=== PATIENT | male | born 1945 | race Caucasian/White ===

== ENCOUNTER → 2017-02-06 | Outpatient (CLI) | payer OTHER ==
[~2017-02-06] MED LIST: SIMV40TA4 PO
== END | disposition home or self-care (01) ==
LOC: C.PATHSPEC 12:51
PROVIDERS: ATTEND Dermatology
DX: L57.0 Actinic keratosis (principal); Q82.8 Other specified congenital malformations of skin

== ENCOUNTER → 2017-04-04 | Outpatient (CLI) | payer OTHER ==
[2017-04-04 10:51] LABS: ALT/SGPT 20 U/L (12-78); AST/SGOT 16 U/L (15-37); BLOOD UREA NITROGEN 14 mg/dl (7-18); BUN/CREATININE RATIO 15.5 (10-20); CALCIUM 8.9 mg/dl (8.5-10.1); CARBON DIOXIDE 26 mmol/L (21-32); CHLORIDE 110 mmol/L (98-107); CREATININE 0.93 mg/dl (0.60-1.40); GLUCOSE 88 mg/dl (70-99); POTASSIUM 4.2 mmol/L (3.5-5.1); SODIUM 140 mmol/L (136-145)
[2017-04-04 10:56] LABS: CHOLESTEROL 167 mg/dl (0-200); CHOLESTEROL/HDL RATIO 3.8; HDL CHOLESTEROL 44 mg/dl; LDL CHOLESTEROL CALCULATED 104 mg/dl; TRIGLYCERIDES 94 mg/dl (0-150); VERY LOW DENSITY LIPOPROT CALC 19 mg/dl
== END | disposition home or self-care (01) ==
LOC: C.LAB1850 06:49
PROVIDERS: ATTEND Internal Medicine
DX: N40.0 Benign prostatic hyperplasia without lower urinary tract symptoms (principal); E78.5 Hyperlipidemia, unspecified

== ENCOUNTER → 2017-11-09 | Outpatient (CLI) | payer OTHER ==
[2017-11-09 10:37] LABS: ALT/SGPT 18 U/L (12-78); AST/SGOT 15 U/L (15-37); BLOOD UREA NITROGEN 16 mg/dl (7-18); CALCIUM 9.2 mg/dl (8.5-10.1); CARBON DIOXIDE 28 mmol/L (21-32); CREATININE 0.95 mg/dl (0.60-1.40); GLUCOSE 88 mg/dl (70-99); POTASSIUM 4.3 mmol/L (3.5-5.1); SODIUM 136 mmol/L (136-145)
[2017-11-09 10:43] LABS: CHOLESTEROL 129 mg/dl (0-200); LDL CHOLESTEROL CALCULATED 71 mg/dl
== END | disposition home or self-care (01) ==
LOC: C.LAB1850 06:54
PROVIDERS: ATTEND Internal Medicine
DX: E78.5 Hyperlipidemia, unspecified (principal); N40.0 Benign prostatic hyperplasia without lower urinary tract symptoms

== ENCOUNTER → 2018-03-01 | Outpatient (CLI) | payer OTHER ==
--- NOTE | 2018-03-01 09:22 | DIAGNOSTIC IMAGING REPORT ---
RIGHT FOOT 3 VIEWS HISTORY: M79.673 Foot pain Tenderness at the base of the toes throughout COMPARISON: None. FINDINGS: There is no fracture or dislocation. Medial soft tissue swelling at the first MTP joint. No radiopaque foreign bodies. Tiny plantar heel spur. No erosive changes identified. The Lisfranc joint is intact. Mild cartilage space narrowing and subchondral sclerosis at the first MTP joint with tiny marginal osteophytes. This is consistent with mild osteoarthritis. IMPRESSION: 1. Mild osteoarthritis at the first MTP joint. 2. Medial soft tissue swelling at the first MTP joint. 3. No bony erosions identified within the right foot. Electronically signed by: Jadiel Chun M.D. 03/01/2018 9:21 AM Dictated Date/Time: 03/01/2018 9:19 AM
== END | disposition home or self-care (01) ==
LOC: C.RAD1850 09:10
PROVIDERS: ATTEND Physician Assistant
DX: M19.071 Primary osteoarthritis, right ankle and foot (principal)

== ENCOUNTER → 2018-03-20 | Outpatient (CLI) | payer OTHER ==
--- NOTE | 2018-03-20 18:47 | DIAGNOSTIC IMAGING REPORT ---
BILATERAL LOWER EXTREMITY ARTERIAL DOPPLER STUDY CLINICAL HISTORY: BILATERAL LEG PAIN/SWELLING COMPARISON STUDY: None. FINDINGS: The right GLENDA measured with the posterior tibial artery was 0.35. The left GLENDA measured with the posterior tibial artery was 0.88 and the dorsalis pedis artery was 0.94. Scattered calcified plaque throughout the bilateral lower extremity arterial systems. Normal velocities seen throughout the right common femoral and superficial femoral arteries. Focal occlusion of the proximal right popliteal artery. There is a small collateral resulting in distal reconstitution of the right popliteal artery. Monophasic low velocity waveforms seen within the right posterior tibial and peroneal arteries. The mid to distal right anterior tibial artery is occluded. The right dorsalis pedis artery is also occluded. Normal velocities and triphasic waveforms seen within the left common femoral and proximal to mid left superficial femoral arteries. Borderline elevated peak systolic velocity within the distal left superficial femoral artery of 190 cm/s. Normal velocity biphasic waveform seen within the left popliteal artery. Normal velocity monophasic waveforms seen within the left peroneal and posterior tibial arteries. Focal occlusion of the distal left anterior tibia artery. However, there is reconstitution with normal velocity monophasic waveforms in the left dorsalis pedis artery. IMPRESSION: 1. Focal occlusions involving the proximal right popliteal artery, mid to distal right anterior tibial artery, right dorsalis pedis artery, and distal left anterior tibial artery as described above. 2. There is borderline stenosis within the distal left superficial femoral artery. 3. Ankle brachial indices as described above. Electronically signed by: Jadiel Chun M.D. 03/20/2018 6:46 PM Dictated Date/Time: 03/20/2018 6:38 PM
== END | disposition home or self-care (01) ==
LOC: C.ULTR 16:07
PROVIDERS: ATTEND Podiatrist Foot & Ankle Surgery
DX: I70.293 Other atherosclerosis of native arteries of extremities, bilateral legs (principal)

== ENCOUNTER → 2018-03-30 | Day surgery (SDC) | payer OTHER ==
--- NOTE | 2018-03-29 14:44 | History and Physical ---
History & Physical Date of Service Mar 29, 2018. History & Physical Dear Dr. Farrar: We had the pleasure seeing your patient, Mr. Hirsch, in [facility] today. As you know, he is a 72-year-old male who has an 8-week history of right foot pain. He reports that the pain is constant. He was seen in an urgent care and initially diagnosed with gout. He did have his uric acid level checked at that time and it returned negative. He was then treated with a course of antibiotics by his primary care physician. He was also seen by you and was sent for a duplex ultrasound of his lower extremity, which revealed an GLENDA of 0.35 on his right and occlusion of his right proximal popliteal mid distal right anterior tibial and right DP, as well as an occlusion of his left AT. His left GLENDA was 0.88. He says that his pain is constant. He is having trouble sleeping. He says when he lies down, the pain is intolerable. Dangling his foot does not help. He has been sleeping at the kitchen table with a pillow on the table. He reports a stinging pain and tingling in his foot. He has been able to continue working, but he needs to take his boot off several times a day to rub his foot. He does also have a small ulceration at the tip of his great toe. He has previously been seen in cardiology and follow there for abdominal aortic aneurysm that was initially 3.4 x 2.8 cm in May 2016. He says he got a repeat ultrasound done in 2016, which showed an improvement of the aneurysm. He is due for another repeat ultrasound in June of this year. REVIEW OF SYSTEMS: A 12-point review of systems is negative other than the above mentioned. PAST MEDICAL HISTORY: Hypercholesterolemia, hypertension. PAST SURGICAL HISTORY: Significant for a hernia repair at the age of 18. HOME MEDICATIONS: Simvastatin, losartan and Combigan. FAMILY HISTORY: Significant for father who with heart disease. He reports no history of stroke in his family. He reports no history of bleeding or clotting disorders. SOCIAL HISTORY: Significant for at least [id number] smoking history. He reports he is currently a pack a day smoker. He reports rare alcohol use. PHYSICAL EXAM: Today in clinic, his vital signs are heart rate of 76. He is saturating 94% on room air. His blood pressure in his right upper extremity is 144/80. His blood pressure in his left upper extremity is 142/88. He is a 72- year-old male who is in no acute distress. His head is normocephalic, atraumatic. His mucous membranes are moist. His extraocular muscles are intact. His sclerae are anicteric. His heart rate is regular rate and rhythm. His lungs are clear to auscultation bilaterally. His abdomen is soft, nontender, nondistended. He has palpable femoral pulses bilaterally. His lower extremities are warm bilaterally. He has palpable DP and PT pulse on his left lower extremity. No palpable pulses felt on his right lower extremity. His right foot shows rubor. He does have an ulceration on the tip of his right great toe. He is alert and oriented x3 with no focal neurologic deficits. In summary, Mr. Hirsch is a 72-year-old male who presents with rest pain in his right foot. He has an GLENDA of 0.35 on his right with occlusion of his right proximal popliteal and mid distal anterior tibial and dorsalis pedis. At this time, we will arrange for him to have an arteriogram on Monday, March 30. Depending on the results of this arteriogram, he may require a bypass in the near future. The risks, benefits and alternatives of this procedure were discussed with him and his and daughter today. They were in understanding and agreed to proceed. He was given a script for percocet for improved pain control. The patient was seen and examined with Dr. Porter who agrees with above assessment and plan. Thank you for referring this patient to our office. I saw and evaluated the patient. Discussed with the resident and agree with the resident's findings and plan as documented in the resident's note. #[id number] Signature Line Electronic Signature on File CC: Adan Farrar DPM [address] [facility] [address] * CC: Mamadou Dickey MD [facility] [address] [facility] [address] * Luma Munoz MD Author Signature Dt/Tm: 03/28/2018 10:18 AM Resident Division of General Surgery Electronically Reviewed/Signed by: Petar Katz Signature Dt/Tm : 03/28/2018 11:15 AM Biochemistry Teacher [facility] [place] [address], [address] [place] [address] JEOVANNY /PSC Result Type: .Outpt Ltr Date of Service: March 28, 2018 00:00 EDT Authorization Status: Final Subject: Outpatient Letter Author or Import Date: MD Tammy, Luma Gutierrez on March 28, 2018 09:18 EDT Verified By: MD Charlotte, Roge Downs on March 28, 2018 11:15 EDT Encounter info: [id number], [facility], Clinic, 03/28/2018 - Contributor system: [id number] Imp: Right popliteal artery occlusion Plan: Patient is admitted for arteriography with possible intervention. I have discussed the risks options and benefits of the procedure with the patient. The patient understands the risks options and benefits and agrees to the procedure.
[~2018-03-30] VITALS: Ht 180.3 cm; Wt 80.0 kg
[~2018-03-30] MED LIST changes: +ALTEPLASE, RECOMBINANT 10 MG in SYRINGE 0 ML IV ONE; +BRIMONIDINE OPR; +CEFAZOLIN 1000MG IV PUSH 7.5 ML IV SCH; +CLOP1TAB54 PO; +CLOPIDOGREL BISULFATE 300 MG TAB PO STA; +FENTANYL CITRATE INJ 50 MCG/1 ML 2 ML VIAL IV ONE; +FENTANYL CITRATE INJ 50 MCG/1 ML 2 ML VIAL ONE; +HEPARIN SOD (PORCINE) 1000 UNIT/ML 10 ML VIAL IV ONE; +HEPARIN SOD (PORCINE) 1000 UNIT/ML 10 ML VIAL ONE; +IODIXANOL (VISIPAQUE) 270 MG/ML 150ML IV ONE; +LIDOCAINE HCL 1% 20 ML VIAL SQ ONE; +MIDAZOLAM HCL 1 MG/ML 2ML VIAL IV ONE; +MIDAZOLAM HCL 1 MG/ML 2ML VIAL ONE; +NITROGLYCERIN/D5W 100 MCG/ML IV PRN; +NITROGLYCERIN/D5W 100MCG/ML 20ML SYR ONE; +NURSING VERBAL MED ORDER ONE; +OXYCODONE/ACETAMINOPHEN 5-325 TAB PO PRN; +SODIUM CHLORIDE 0.9% 1000ML 1,000 ML IV SCH; +TIMOLOL OPR; +losartan PO
[2018-03-30 08:54] VITALS: BP 135/77; PULSE 85; TEMP 36.5; O2SAT 95; Ht 180.3 cm; Wt 80.0 kg
--- NOTE | 2018-03-30 09:04 | History & Physical Bridge Note ---
H&P Re-Evaluation Bridge Note: I have examined the patient, reviewed the History & Physical and in the interval since the performance of the History & Physical I have noted the following changes of clinical significance: No changes noted
--- NOTE | 2018-03-30 10:30 | Pre Sedation Assessment ---
Pre Sedation Assessment General Date of Sedation: Mar 30, 2018. Vital Signs Past 12 Hours Date Time Temp Pulse Resp B/P (MAP) Pulse Ox O2 Delivery O2 Flow Rate FiO2 03/30/18 08:54 36.5 85 20 135/77 (96) 95 Room Air Review Cardiovascular: regular rate, rhythm Lungs: lungs clear Pre-Sedation Airway Assessment Smoking Status: Current Some Day Smoker Hx of Sleep Apnea: No Short Thick Neck: No Thyro-mental Distance: > 3 Finger Breadths Oral Cavity: Dentures Mallampati Classification: Class I ASA Classification: Class III NPO Status Date of Last Intake of Fluids: Mar 29, 2018 Time of Last Intake of Fluids: 2300 Date of Last Intake of Solids: Mar 29, 2018 Time of Last Intake of Solids: 2300 Procedure Planning Contraindications for Sedation: None Current Medications Reviewed: Yes Notes The planned sedation has been discussed with the patient. Informed Consent was obtained. I have identified the patient, determined the appropriateness of sedation and have assessed the patient immediately prior to the procedure. All medicine(s) and interventions are by my order.
--- NOTE | 2018-03-30 13:22 | [facility] Post Operative Brief Note ---
Immediate Operative Summary Operative Date Mar 30, 2018. Pre-Operative Diagnosis Right Popliteal Occlusion Post-Operative Diagnosis Right Popliteal Occlusion Procedure(s) Performed Angiogram With Run Off, Percutaneous Transluminal Angioplasty, Mechanical Arthrectomy, Infusion of thrombolytics, Moderate Sedation From [address] Porter Sensor Specialist Surgeon(s) Luma Nina MD Estimated Blood Loss 10 Findings Consistent with Post-Op Diagnosis Specimens None Drains None Anesthesia Type IV Sedat Cons RN Only Complication(s) none Disposition Accompanied Pt To Recover: no Disposition:
--- NOTE | 2018-03-30 13:26 | Discharge Instructions ---
Discharge Instructions Date of Service Mar 30, 2018. Visit Reason for Visit: Right Popliteal Occlusion W/Rest Pain Discharge Discharge Diagnosis / Problem: Right popliteal artery occlusion Discharge Goals Goal(s): Therapeutic intervention Activity Recommendations Activity Limitations: per Instructions/Follow-up section Anesthesia . Post Anesthesia Instructions: If you have had General Anesthesia or IV Sedation: * Do not drive today. * Resume driving when surgeon permits. * Do not make important decisions or sign legal documents today. * Call surgeon for: 1. Temperature elevations greater than 101 degrees F. 2. Uncontrollable pain. 3. Excessive bleeding. 4. Persistent nausea and vomiting. 5. Medication intolerance (nausea, vomiting or rash). * For nausea and vomiting use only clear liquids such as: tea, soda, bouillon until nausea subsides, then gradually increase diet as tolerated. * If you have any concerns or questions, call your surgeon's office. If physician is unavailable and it is an emergency, call 911 or go to the nearest emergency room. . Instructions / Follow-Up Instructions / Follow-Up Call [phone] to schedule a follow up appointment if one not already scheduled. SPECIAL CARE INSTRUCTIONS: Medications: * Continue to take your medications as directed. If you have been given a prescription for Plavix, please fill it immediately and take as directed. Incision Care: * Your puncture site may have some bruising and minor swelling for about one week. * You will have a small dressing covering your puncture site. You may remove the dressing after 24 hours and shower. You may let the warm soapy water run over it, but be sure to dry the puncture site well and keep it dry. * DO NOT IMMERSE THE INCISION IN A TUB/POOL/etc. UNTIL HEALED. * Puncture sites should be kept covered with a band-aid until it begins to heal. Restrictions: * Depending on whether you leg or arm was punctured to access the arteries, you will be required to lay flat, hold your arm still, or both, for about 4 hours after the procedure to prevent bleeding. * Limit your activity for the first 48 hours. You may walk and go up and down steps. Avoid excessive bending or movement at the puncture site. Possible Complications: * Excessive Swelling - after blood flow is improved you may notice increased swelling in the lower legs. This is a normal response. This usually depends on the amount of blockages in the leg, how long they have been there prior to your procedure and how much blood flow was restored. Elevating your legs will help to improve this. Please notify our office ([phone] ) if the swelling does not go away after lying in bed overnight. * Infection/Drainage/Bleeding - Drainage or bleeding from the puncture site should be minimal. If you have excessive bleeding or drainage, call our office ([phone]) right away. * Pain - You may experience some mild pain or soreness at your puncture site. If your pain does not improve, please contact our office ([phone]). Call your doctor and seek emergent treatment if you develop: * Temperature above 101 degrees * Any fever or chills * Any redness or purulent drainage from the puncture site * Any new dusky/blue colored toes or feet with coolness or sharp or aching pain. SKIN IRRITATION: * You may experience some redness and/or swelling in the area where radiation was administered. If any skin irritation occurs, please contact your family physician. FOLLOW UP VISIT: Keep any scheduled doctor appointments. Diet Recommendations Recommended Home Diet: resume previous diet Procedures Procedures Performed: Angiogram With Run Off, Percutaneous Transluminal Angioplasty, Mechanical Arthrectomy, Infusion of thrombolytics, Moderate Sedation Pending Studies Studies pending at discharge: no Medical Emergencies . Who to Call and When: Medical Emergencies: If at any time you feel your situation is an emergency, please call 911 immediately. . Non-Emergent Contact Non-Emergency issues call your: Surgeon . . "Provider Documentation" section prepared by Roge Porter. .
--- NOTE | 2018-03-30 13:29 | [facility] Operative Report ---
Operative Report Operative Date Mar 30, 2018. Pre-Operative Diagnosis Right Popliteal Occlusion Post-Operative Diagnosis Right Popliteal Occlusion Procedure(s) Performed Angiogram With Run Off, Percutaneous Transluminal Angioplasty, Mechanical Arthrectomy, Infusion of thrombolytics, Moderate Sedation From [address] Porter Business Employment Specialist Surgeon(s) Luma Munoz MD Estimated Blood Loss 10 ml Specimens None Drains None Anesthesia Type IV Sedat Cons RN Only Complication(s) none Disposition no Indications Mr. Hirsch is a 72-year-old male who has an 8-week history of right foot pain. He was seen in an urgent care and initially diagnosed with gout. He did have his uric acid level checked at that time and it returned negative. He was then treated with a course of antibiotics by his primary care physician. He eventually was sent for a duplex ultrasound of his lower extremity, which revealed an GLENDA of 0.35 on his right and occlusion of his right proximal popliteal, mid distal anterior tibial and DP, as well as an occlusion of his left AT. His left GLENDA was 0.88. He says that his pain is constant. He does also have a small ulceration at the tip of his great toe. The risks, benefits and alternatives were discussed with the Mr. Hirsch, his and daughter and he agreed to proceed. Description of Procedure The patient was brought to the angio suite and placed in the supine position. He was given preoperative antibiotics. Local anesthesia was administered. The left common femoral artery was accessed under ultrasound guidance. A 5 Slovenian sheath was placed. An 0.035 angled glidewire was advanced to the aorta. A 5 Slovenian rim catheter was used to access the right common iliac artery. Arteriogram of the right iliac showed no stenosis in the right external iliac, common femoral, superficial femoral or profunda femoris arteries. The glidewire was advanced to the right SFA and the rim catheter was then advanced over the wire. Right lower extremity arteriogram was completed showing occlusion of the popliteal artery with collateralization and the peroneal artery providing flow to the right foot. A stiff 0.035 glidewire was then used and easily crossed the area of popliteal occlusion. The 5 Fr sheath and rim catheter were removed and a Destination 8 Fr 45cm sheath was placed under fluoroscopy. The 035 glidewire was exchanged for an 0.014 glidewire. The Jetstream 7Fr 1.85 was used for embolectomy of the popliteal artery. Angiogram showed improvement in blood flow through the popliteal with continued stenosis. The Jetstream 7 Fr 2.1 was then used for embolectomy of the popliteal artery. We then did percutaneous transluminal angioplasty of the distal popliteal artery with an Ozona 4.0 x 80mm balloon, followed by angioplasty of the mid and proximal popliteal artery with an Ozona 5.0 x 90mm balloon. Arteriogram showed peroneal runoff to the foot. The patient was given 200 mcg nitroglycerin via the sheath to improve blood flow to the foot. Repeat angiogram did not show improvement in the distal runoff. A 0.014 quick cross catheter was then placed and advanced to the popliteal artery. 10mg of tPA were administered via the quick cross catheter. Angiogram was repeated after 5 min and 10 min after tPA administration with improvement of flow. The catheter and sheath were removed and the Starclose device was used to close the puncture site. Hemostasis was held over the left femoral artery. Hemostasis was achieved. The patient tolerated the procedure well and was brought to the PACU in good condition. Dr. Porter was present and scrubbed for the entire procedure. I attest to the content of the Intraoperative Record and any orders documented therein. Any exceptions are noted below.
[2018-03-30 13:45] VITALS: BP 120/77; PULSE 91; TEMP 36.3; O2SAT 93
[2018-03-30 14:15] VITALS: BP 146/66; PULSE 88; TEMP 36.3; O2SAT 94
[2018-03-30 14:45] VITALS: BP 140/69; PULSE 94; TEMP 36.3; O2SAT 95
--- NOTE | 2018-03-30 15:17 | Post Sedation Assessment ---
Post Sedation Assessment General Date of Sedation Mar 30, 2018. Vital Signs: Vital Signs Past 12 Hours Date Time Temp Pulse Resp B/P (MAP) Pulse Ox O2 Delivery O2 Flow Rate FiO2 03/30/18 13:30 93 18 111/61 92 Room Air Oxymask 03/30/18 13:25 88 18 138/72 95 Oxymask 4 03/30/18 13:20 87 18 113/79 96 Oxymask 4 03/30/18 13:15 88 14 126/64 96 Oxymask 4 03/30/18 13:10 88 16 134/89 97 Oxymask 4 03/30/18 13:05 89 16 117/75 96 Oxymask 4 03/30/18 13:00 88 16 111/86 96 Oxymask 4 03/30/18 12:55 88 15 140/85 95 Oxymask 4 03/30/18 12:50 92 13 118/86 92 Oxymask 4 03/30/18 12:45 94 16 165/83 98 Oxymask 4 03/30/18 12:40 94 12 153/87 99 Oxymask 4 03/30/18 12:35 94 12 159/90 99 Oxymask 4 03/30/18 12:30 87 12 115/78 99 Oxymask 4 03/30/18 12:25 87 12 120/77 96 Oxymask 4 03/30/18 12:20 89 16 121/83 97 Oxymask 4 03/30/18 12:15 88 15 158/85 100 Oxymask 4 03/30/18 12:10 87 19 144/80 100 Oxymask 4 03/30/18 12:05 89 19 144/78 100 Oxymask 4 03/30/18 12:00 87 19 164/78 100 Oxymask 4 03/30/18 11:55 93 16 142/80 99 Oxymask 4 03/30/18 11:50 88 15 135/82 98 Oxymask 4 03/30/18 11:45 90 14 170/106 98 Oxymask 4 03/30/18 11:32 87 22 159/75 98 Oxymask 4 03/30/18 08:54 36.5 85 20 135/77 (96) 95 Room Air Post Procedure Recovery Score Activity: (2) Moves 4 extremities * Respiration: (2) Deep breath/cough Circulation: (2) +/-20% PreAnes Value Consciousness: (2) Fully Awake Oxygen Saturation: (1) O2 needed for >90% Post Anesthesia Score: 9 Discharge Sedation Level of Care: Fast Track Phase II Post Sedation Plan On clinical assessment, the patient appears to have tolerated the sedation without complications. Patient is recovering as anticipated. Patient will continue to be monitored by nursing and may be discharged when sedation discharge criteria are met per below protocol. Upon Completions of procedure and additional 15 minutes continue every 5 minute vital signs and the P.A.R. score; then discharge to a Phase I or Fast Track to Phase II per the following guidelines: * Discharge Patient to appropriate Phase II area if PAR is 8 or greater or return to pre- procedure baseline. The post - procedure orders will be as directed. * If PAR score is less than 8 or not return to pre-procedure baseline then patient will follow Phase I monitoring till PAR is reached for Phase II. The Phase I may be done in procedure room or may call to secure a Phase I area. * If naloxone or flumazenil are used for reversal, hold in Phase I for an additional 60 -120 minutes before discharge to Phase II. Please call the Sedation Physician to re-evaluate and complete post-note for discharge to Phase II area. Do NOT discharge from procedure sedation or Phase 1 until post- sedation evaluation note is complete by procedure /sedation MD Sedation Discharge Instructions to be given to the patient at discharge to home.
[2018-03-30 15:45] VITALS: BP 140/69; PULSE 84; TEMP 36.5; O2SAT 95
== END | disposition home or self-care (01) ==
LOC: C.ACU 07:54
PROVIDERS: ATTEND Surgery Vascular Surgery
DX: I74.3 Embolism and thrombosis of arteries of the lower extremities (principal); E78.00 Pure hypercholesterolemia, unspecified; I10 Essential (primary) hypertension; F17.200 Nicotine dependence, unspecified, uncomplicated